=== PATIENT | male | born 1980 | race Caucasian/White ===

== ENCOUNTER 2020-01-04 08:42 | Emergency (ER) | payer MEDICAID, OTHER ==
[~2020-01-04] VITALS: Ht 172.7 cm; Wt 77.1 kg
[2020-01-04 10:01] VITALS: BP 157/100
[2020-01-04] MEDS ORDERED: ACETAMINOPHEN/CODEINE#3 (300/30mg) TAB PO ONE (10:15)
[2020-01-04] MEDS ORDERED: methylPREDNISolone SOD SUCC 125 MG/2 ML VL IV ONE (10:15)
[2020-01-04] MEDS ORDERED: CLINDAMYCIN 600MG IV 50 ML IV ONE (10:15)
[2020-01-04] MEDS ORDERED: KETOROLAC TROMETH 30 MG/ML 1ML VIAL IV ONE (10:15)
== END 2020-01-04 11:39 | disposition home or self-care (01) ==
LOC: ER 08:42
DX: K04.7 Periapical abscess without sinus (principal); F17.200 Nicotine dependence, unspecified, uncomplicated
CPT/HCPCS: 96365; 96375; 99284; J1885; J2930; J3490

== ENCOUNTER → 2021-06-15 | Emergency (ER) | payer MEDICAID ==
[~2021-06-15] VITALS: Ht 172.7 cm; Wt 86.2 kg
[~2021-06-15] MED LIST: cefTRIAXone SOD 1,000 MG VL IM ONE
[2021-06-15 19:50] VITALS: BP 163/111
== END | disposition home or self-care (01) ==
LOC: ER 18:07
DX: L02.213 Cutaneous abscess of chest wall (principal); Z87.891 Personal history of nicotine dependence
CPT/HCPCS: 96372; 99283; J0696

== ENCOUNTER 2024-03-16 16:54 | Emergency (ER) | payer MEDICAID ==
[~2024-03-16] VITALS: Ht 172.7 cm; Wt 77.8 kg
[2024-03-16 17:25] VITALS: BP 185/140; PULSE 122; RESP 17; O2SAT 97
[2024-03-16] MEDS ORDERED: HYDROcodone-ACET 5/325MG TAB PO ONE (17:30)
[2024-03-16] MEDS ORDERED: cefTRIAXone SOD 1,000 MG VL IM ONE (17:45)
[2024-03-16] MEDS ORDERED: cloNIDine HCL 0.1 MG TAB PO ONE (17:45)
[2024-03-16 18:59] LABS: Basophils # (auto) 0.1 10 ^3/uL (0-0.2); Basophils % (auto) 0.7 % (0.0-2.0); Eosinophils # (auto) 0.1 10 ^3/uL (0-0.8); Eosinophils % (auto) 0.8 % (0.0-7.0); Hematocrit 43.7 % (41.0-53.0); Hemoglobin 15.1 g/dL (13.5-17.5); Lymphocytes # (auto) 2.5 10 ^3/uL (0.4-5.4); Lymphocytes % (auto) 24.6 % (10.0-50.0); Mean Corpuscular Hemoglobin 32.5 pg (28.0-32.0); Mean Corpuscular Hgb Conc. 34.6 g/dL (32.0-36.0); Mean Corpuscular Volume 94.1 fL (80.0-100.0); Monocytes # (auto) 1.5 10 ^3/uL (0-1.3); Monocytes % (auto) 14.5 % (0.0-12.0); Neutrophils % (auto) 59.4 % (37.0-80.0); Nucleated Red Blood Cells % 0.1 %; Platelet Count (auto) 243 10^3/uL (140-450); Red Blood Cells 4.64 10^6/uL (4.5-5.90); White Blood Cell 10.2 10^3/uL (4.4-10.8)
[2024-03-16 19:04] LABS: Chloride 106 mmol/L (98-107); Potassium 3.7 mmol/L (3.5-5.1); Sodium 137 mmol/L (136-145)
[2024-03-16 19:05] LABS: Anion Gap 4 (5-15); Calcium 9.7 mg/dL (8.7-10.4); Carbon Dioxide 27 mmol/L (20-30)
[2024-03-16 19:10] LABS: BUN/Creatinine Ratio 8.2 (10.0-20.0); Blood Urea Nitrogen 8 mg/dL (9-23); Glucose 97 mg/dL (74-106)
[2024-03-16 19:20] LABS: CRP High Sensitivity 1.15 mg/dL (<1.0)
[2024-03-16 20:10] LABS: Erythrocyte Sedimentation Rate 8 mm/hr (0-20)
[2024-03-16] MEDS ORDERED: CEPH500C PO (20:32)
[2024-03-16] MEDS ORDERED: IBUP-1455 PO (20:32)
[2024-03-16] MEDS ORDERED: LISI-275 PO (20:32)
== END 2024-03-16 23:05 | disposition home or self-care (01) ==
LOC: ER 16:54
DX: S61.431A Puncture wound without foreign body of right hand, initial encounter (principal); L03.113 Cellulitis of right upper limb; I10 Essential (primary) hypertension; Z87.891 Personal history of nicotine dependence; X58.XXXA Exposure to other specified factors, initial encounter; Y93.89 Activity, other specified; Y92.89 Other specified places as the place of occurrence of the external cause; Y99.8 Other external cause status
CPT/HCPCS: 36415; 73200; 80048; 83605; 85025; 85652; 86141

== ENCOUNTER 2024-08-08 22:29 | Inpatient (IN) | payer SELFPAY ==
[~2024-08-08] VITALS: Ht 170.2 cm; Wt 77.2 kg
[~2024-08-08 22:29] MED LIST changes: +CEPH500C PO; +IBUP-1455 PO; +LISI-275 PO; -cefTRIAXone SOD 1,000 MG VL IM ONE
[2024-08-08 22:58] LABS: Chloride 107 mmol/L (98-107); Potassium 3.6 mmol/L (3.5-5.1); Sodium 140 mmol/L (136-145)
[2024-08-08 22:59] LABS: Anion Gap 6 (5-15); Carbon Dioxide 27 mmol/L (20-31)
[2024-08-08 23:00] LABS: Calcium 9.9 mg/dL (8.7-10.4)
[2024-08-08 23:04] LABS: BUN/Creatinine Ratio 11.2 (10.0-20.0); Blood Urea Nitrogen 15 mg/dL (9-23)
[2024-08-08 23:06] LABS: Basophils # (auto) 0.1 10 ^3/uL (0-0.2); Basophils % (auto) 0.9 % (0.0-2.0); Eosinophils # (auto) 0.1 10 ^3/uL (0-0.8); Eosinophils % (auto) 0.9 % (0.0-7.0); Hematocrit 45.5 % (41.0-53.0); Hemoglobin 15.4 g/dL (13.5-17.5); Mean Corpuscular Hemoglobin 31.8 pg (28.0-32.0); Mean Corpuscular Hgb Conc. 33.8 g/dL (32.0-36.0); Mean Corpuscular Volume 94.2 fL (80.0-100.0); Monocytes # (auto) 0.9 10 ^3/uL (0-1.3); Monocytes % (auto) 12.4 % (0.0-12.0); Neutrophils % (auto) 56.8 % (37.0-80.0); Nucleated Red Blood Cells % 0.2 %; Platelet Count (auto) 242 10^3/uL (140-450); Red Blood Cells 4.83 10^6/uL (4.5-5.90); Red Cell Distribution Width 12.8 % (11.8-14.3)
--- NOTE | 2024-08-08 23:06 | ED.PDOC ---
History of Present Illness HPI Roland 44 y/o M, with a Hx of HTN, presents with c/o non-radiating, left-sided chest pain for 1 day, today. Patient endorses on unprovoked onset of symptoms, last night, that has been persisting since. He comments on, today, feeling more "off" than ever in addition to being off his HTN medications since losing them, recently. He denies any shortness of breath, palpitations, nausea, vomiting, fever, chills, or other associated symptoms or modifiers at this time. Upon arrival to ED triage and time of assessment, patient had a blood pressure of 181/119. Chief Complaint: Chest Pain Time Seen by MD: 22:30 Primary Care Provider: NONE Reviewed Notes: Nurses Notes, Medications, Allergies Allergies: Coded Allergies: NO KNOWN ALLERGIES (Unverified , 06/29/12) Home Meds Active Scripts Lisinopril (Lisinopril) 5 Mg Tab, 5 MG PO DAILY for 30 Days, #30 TAB 3 Refills Prov:SUMAN ESPINOZA [facility] 03/16/24 Cephalexin Monohydrate (Cephalexin) 500 Mg Cap, 1 CAP PO QID for 5 Days, #20 CAP Prov:SUMAN ESPINOZA [facility] 03/16/24 Ibuprofen Micronized (Ibuprofen) 800 Mg Tab, 800 MG PO Q8HPRN PRN, #20 TAB Prov:SUMAN ESPINOZA [facility] 03/16/24 Information Source: Patient Mode of Arrival: Ambulatory Severity: Moderate Timing: Days Duration: Since onset Prehospital treatment: None Past Medical History PAST MEDICAL HISTORY: HTN Surgical History: Denies all surgeries Family History Family History: Unknown Social History Smoker: Non-Smoker Alcohol: Occasionally Drugs: Marijuana Lives In: Home Cardiovascular: reports: chest pain All Other Systems: Reviewed and Negative (negative ) Physical Exam General Appearance: No Apparent Distress, Normal HEENT: Normal ENT Inspection, Pharynx Normal, TMs Normal Neck: Full Range of Motion, Non-Tender, Normal, Normal Inspection Respiratory: Chest Non-Tender, Lungs Clear, No Accessory Muscle Use, No Respiratory Distress, Normal Breath Sounds Cardiovascular: No Edema, No JVD, No Murmur, No Gallop, Normal Peripheral Pulses, Regular Rate/Rhythm Breast Exam: Deferred Gastrointestinal: No Organomegaly, Non Tender, No Pulsatile Mass, Normal Bowel Sounds, Soft Genitalia: Deferred Pelvic: Deferred Rectal: Deferred Extremities: No calf tenderness, Normal capillary refill, Normal inspection, Normal range of motion, Non-tender, No pedal edema Musculoskeletal : Apperance: Normal Neurologic: Alert, 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 Was a procedure done?: No Differential Dx Considerations may include: PR, PE, ACS, costochondritis, pericarditis, gastritis, gastroenteritis, viral syndrome, musculoskeletal pain, angina, anxiety X-Ray, Labs, Meds, VS Vital Signs Date Time Temp Pulse Resp B/P (MAP) Pulse Ox O2 Delivery O2 Flow Rate FiO2 08/08/24 23:50 89 08/08/24 22:37 98.8 103 16 181/119 (139) 97 08/08/24 22:34 104 Lab Test 08/08/24 23:27 08/08/24 21:38 Range/Units Troponin I High Sensitivity 55 *H 54 </=54 ng/L White Blood Count 7.0 4.4-10.8 10^3/uL Red Blood Count 4.83 4.5-5.90 10^6/uL Hemoglobin 15.4 13.5-17.5 g/dL Hematocrit 45.5 41.0-53.0 % Mean Corpuscular Volume 94.2 80.0-100.0 fL Mean Corpuscular Hemoglobin 31.8 28.0-32.0 pg Mean Corpuscular Hemoglobin Concent 33.8 32.0-36.0 g/dL Red Cell Distribution Width 12.8 11.8-14.3 % Platelet Count 242 140-450 10^3/uL Mean Platelet Volume 8.1 6.9-10.8 fL Neutrophils (%) (Auto) 56.8 37.0-80.0 % Lymphocytes (%) (Auto) 29.0 10.0-50.0 % Monocytes (%) (Auto) 12.4 H 0.0-12.0 % Eosinophils (%) (Auto) 0.9 0.0-7.0 % Basophils (%) (Auto) 0.9 0.0-2.0 % Neutrophils # (Auto) 4.0 1.6-8.6 10 ^3/uL Lymphocytes # (Auto) 2.0 0.4-5.4 10 ^3/uL Monocytes # (Auto) 0.9 0-1.3 10 ^3/uL Eosinophils # (Auto) 0.1 0-0.8 10 ^3/uL Basophils # (Auto) 0.1 0-0.2 10 ^3/uL Nucleated Red Blood Cells 0.2 % Sodium Level 140 136-145 mmol/L Potassium Level 3.6 3.5-5.1 mmol/L Chloride Level 107 98-107 mmol/L Carbon Dioxide Level 27 20-31 mmol/L Anion Gap 6 5-15 Blood Urea Nitrogen 15 9-23 mg/dL Creatinine 1.34 H 0.700-1.30 mg/dL Glomerular Filtration Rate Calc 67 >90 mL/min BUN/Creatinine Ratio 11.2 10.0-20.0 Serum Glucose 110 H 74-106 mg/dL Calcium Level 9.9 8.7-10.4 mg/dL B-Type Natriuretic Peptide 37.78 0-100 pg/mL [place] [address] Ph: [phone] DIAGNOSTIC IMAGING Diagnostic Imaging Report : [id number] Signed PATIENT: MASSIEL ESTRADA ACCT: [id number] UNIT: [id number] : 1980 LOC: ER ROOM / BED: / AGE / SEX: 44 / M ADM STATUS: REG ER SERVICE 2245 ORDERING PHYSICIAN: NILSA OQUENDO MD PROCEDURE(s): CXR2 - CHEST TWO VIEWS ROUTINE REASON: chest pain ORDER NUMBER(s): [id number], ACCESSION NUMBER(s): [id number] EXAM: XY CHEST TWO VIEWS ROUTINE CLINICAL HISTORY: chest pain TECHNIQUE: Frontal and lateral views of the chest WID: COMPARISON: None FINDINGS: Lines and tubes: None Chest: The heart size and pulmonary vasculature is within normal limits. Small subtle mixed opacity in the lateral right lung base. No pleural effusion or pneumothorax. The osseous structures are grossly intact. Multilevel thoracic spondylosis. IMPRESSION: Small subtle opacity in the lateral right lung base which could reflect developing pneumonia. ATED BY: FRANCK FOSS MD DICTATED DATE/TIME: 08/08/242351 SIGNED BY: FRANCK FOSS MD SIGNED DATE/TIME: 08/08/242351 CC: Time of 1ST Reevaluation: 23:00 Reevaluation 1ST: Unchanged Patient Education/Counseling: Diagnosis, Treatment Family Education/Counseling: No Family Present Additional Information I reviewed the following notes from patient's past medical encounters: ED visit physician note on 03/16/24 The following tests were ordered, and results were reviewed by me: CBC, BNP, BMP, TROPONIN, EKG, CXR I reviewed and agreed with the following test results read by other providers: CXR I discussed treatment and results with medical personnel Departure 1 Departure Time of Disposition: 00:59 (Patient presented with hypertension and symptoms concerning for hypertensive emergency. Patient is receiving iv blood pressure medications requiring intensive monitoring. Data: 1. I ordered and reviewed the result of at least 3 labs including a CBC, BMP, and Urinalysis. 2. I independently interpreted the following tests: CT Brain: Which appears benign. EKG which is Normal Sinus RhythmRisk:This patient has a high risk of morbidity due to further diagnostic testing or treatment and may suffer from an acute cardiac disorder. Workup reveals hypertensive emergency and patient should be admitted for further workup. and possible expert consultation. ) Impression: Primary Impression: Hypertensive emergency, no CHF Disposition: 09 ADMITTED INPATIENT Admit to: Med Surg Condition: Serious Critical Care Note Critical Care Time?: Yes Critical care comment: Hypertensive emergency Authorized and Performed by: Nilsa Oquendo MD Total critical care time: Approximately 32 minutes Due to a high probability of clinically significant, life threatening deterioration, the patient required my highest level of preparedness to intervene emergently and I personally spent this critical care time directly and personally managing the patient. This critical care time included obtaining a history; examining the patient; pulse oximetry; ordering and review of studies; arranging urgent treatment with development of a management plan; evaluation of patient's response to treatment; frequent reassessment; and, discussions with other providers. This critical care time was performed to assess and manage the high probability of imminent, life-threatening deterioration that could result in multi-organ failure. It was exclusive of separately billable procedures and treating other patients and teaching time. Please see my other sections and the rest of the note for further information on patient assessment and treatment. Stability Stability form required: No Heart Score Heart Score: Heart Score Response (Comments) Value History Slightly Suspicious 0 EKG Normal 0 Age <45 0 Risk Factors 1 or 2 risk factors 1 Troponin 1-2 x's Normal limit 1 Total 2 I personally scribed for NILSA OQUENDO MD ([email or web address]) on 08/08/24 at 23:06. Electronically submitted by Maximiliano Lawrence ([email or web address]). I personally scribed for NILSA OQUENDO MD ([email or web address]) on 08/09/24 at 00:30. Electronically submitted by Maximiliano Lawrence ([email or web address]). I personally scribed for NILSA OQUENDO MD ([email or web address]) on 08/09/24 at 00:30. Merle ctronically submitted by Maximiliano Lawrence ([email or web address]). NILSA OQUENDO MD Aug 08, 2024 23:06
[2024-08-08 23:17] LABS: Glucose 110 mg/dL (74-106)
--- NOTE | 2024-08-08 23:55 | DVH ---
EXAM: XY CHEST TWO VIEWS ROUTINE CLINICAL HISTORY: chest pain TECHNIQUE: Frontal and lateral views of the chest WID: COMPARISON: None FINDINGS: Lines and tubes: None Chest: The heart size and pulmonary vasculature is within normal limits. Small subtle mixed opacity in the lateral right lung base. No pleural effusion or pneumothorax. The osseous structures are grossly intact. Multilevel thoracic spondylosis. IMPRESSION: Small subtle opacity in the lateral right lung base which could reflect developing pneumonia.
[2024-08-09 01:20] VITALS: PULSE 95; RESP 16; O2SAT 97
[2024-08-09] MEDS: hydrALAZINE HCL 20 MG/ML VL IV ONE (01:20)
[2024-08-09 02:34] VITALS: BP 178/109; PULSE 95; RESP 16; O2SAT 98
[2024-08-09] MEDS: cloNIDine HCL 0.1 MG TAB ONE (02:48)
[2024-08-09] MEDS: cloNIDine HCL 0.1 MG TAB PO ONE (02:48)
[2024-08-09] MEDS ORDERED: NITROGLYCERIN 0.4 MG SL TAB SL PRN (03:45)
[2024-08-09] MEDS ORDERED: MORPHINE SULFATE INJ 2 MG/ml SYRG IV PRN (03:45)
--- NOTE | 2024-08-09 04:35 | DVHDSRES ---
Discharge Summary Date of Admission Resident Creating Document: LIZ CHUNG RESDIENT Aug 09, 2024 at 03:31 Date of Discharge: Aug 09, 2024 Admitting Diagnosis Hypertensive Emergency Labs/Diagnostic Data: Laboratory Results Test 08/09/24 01:33 08/08/24 21:38 Troponin I High Sensitivity 55 ng/L (</=54) White Blood Count 7.0 10^3/uL (4.4-10.8) Red Blood Count 4.83 10^6/uL (4.5-5.90) Hemoglobin 15.4 g/dL (13.5-17.5) Hematocrit 45.5 % (41.0-53.0) Mean Corpuscular Volume 94.2 fL (80.0-100.0) Mean Corpuscular Hemoglobin 31.8 pg (28.0-32.0) Mean Corpuscular Hemoglobin Concent 33.8 g/dL (32.0-36.0) Red Cell Distribution Width 12.8 % (11.8-14.3) Platelet Count 242 10^3/uL (140-450) Mean Platelet Volume 8.1 fL (6.9-10.8) Neutrophils (%) (Auto) 56.8 % (37.0-80.0) Lymphocytes (%) (Auto) 29.0 % (10.0-50.0) Monocytes (%) (Auto) 12.4 % (0.0-12.0) Eosinophils (%) (Auto) 0.9 % (0.0-7.0) Basophils (%) (Auto) 0.9 % (0.0-2.0) Neutrophils # (Auto) 4.0 10 ^3/uL (1.6-8.6) Lymphocytes # (Auto) 2.0 10 ^3/uL (0.4-5.4) Monocytes # (Auto) 0.9 10 ^3/uL (0-1.3) Eosinophils # (Auto) 0.1 10 ^3/uL (0-0.8) Basophils # (Auto) 0.1 10 ^3/uL (0-0.2) Nucleated Red Blood Cells 0.2 % Sodium Level 140 mmol/L (136-145) Potassium Level 3.6 mmol/L (3.5-5.1) Chloride Level 107 mmol/L (98-107) Carbon Dioxide Level 27 mmol/L (20-31) Anion Gap 6 (5-15) Blood Urea Nitrogen 15 mg/dL (9-23) Creatinine 1.34 mg/dL (0.700-1.30) Glomerular Filtration Rate Calc 67 mL/min (>90) BUN/Creatinine Ratio 11.2 (10.0-20.0) Serum Glucose 110 mg/dL (74-106) Calcium Level 9.9 mg/dL (8.7-10.4) B-Type Natriuretic Peptide 37.78 pg/mL (0-100) Other Laboratory Tests 08/08/24 21:38 Brief Hx & Hospital Course: This is a 44-year-old male with past medical history of hypertension, came to the hospital due to left-sided chest pain. Per patient, he has developed left- sided chest pain since 1 days, localized to the left lower chest, no radiation, 4/10 in intensity, dull in nature with no specific exacerbating or relieving factor. The patient also reports mild shortness of breaths, and body shaking. The patient denies fever, cough, headache, visual changes, nausea, vomiting, or any sensory or motor deficits. the patient has been run out of the antihypertensive medicine since 1 mouth. PMHx: Hypertension PSHx: Not significant Social history: Patient lives with the family at home, ex-smoker, denies alcohol or any other drug use Home medication: Patient was using antihypertensive, did not remember the name, ran out of medicine 1 month back Allergic history: Unknown allergy On admission, blood pressure was raised at 181/119, otherwise physical examination was unremarkable. Lab studies showed raised creatinine at 1.31, raised trop I at 55, chest x-ray showed hyperinflation and EKG showed nonspecific changes on anterolateral leads. The patient was admitted at the line of hypertensive emergency. In ED the patient was given injection hydralazine and tablet clonidine, blood pressure mild improved. On 08/09/2024, the patient seen and examined at the bedside. Patients status and the plan was discussed with the patient. But later on the patient left AMA. Operations or Procedures [address] [address] Ph: [phone] DIAGNOSTIC IMAGING Diagnostic Imaging Report : [id number] Signed PATIENT: MASSIEL ESTRADA ACCT: [id number] UNIT: [id number] : 1980 LOC: ER ROOM / BED: / AGE / SEX: 44 / M ADM STATUS: REG ER SERVICE 2245 ORDERING PHYSICIAN: NILSA OQUENDO MD PROCEDURE(s): CXR2 - CHEST TWO VIEWS ROUTINE REASON: chest pain ORDER NUMBER(s): [id number], ACCESSION NUMBER(s): [id number] EXAM: XY CHEST TWO VIEWS ROUTINE CLINICAL HISTORY: chest pain TECHNIQUE: Frontal and lateral views of the chest WID: COMPARISON: None FINDINGS: Lines and tubes: None Chest: The heart size and pulmonary vasculature is within normal limits. Small subtle mixed opacity in the lateral right lung base. No pleural effusion or pneumothorax. The osseous structures are grossly intact. Multilevel thoracic spondylosis. IMPRESSION: Small subtle opacity in the lateral right lung base which could reflect developing pneumonia. ATED BY: FRANCK FOSS MD DICTATED DATE/TIME: 08/08/242351 SIGNED BY: FRANCK FOSS MD SIGNED DATE/TIME: 08/08/242351 CC: Condition at Discharge: Undetermined Final Diagnosis/Problems List Hypertensive emergency NSTEMI, likely type 2, due to above ELVIRA, likely VMN Hyperglycemia Discharge Disposition: AMA Discharge Statement: "Patient was advised to return to the ER or call 911 if any headaches, dizziness, shortness of breath, chest pain, abdominal pain, bleeding, fevers, or worsening of medical condition. Patient was counseled about treatment plan, medications, possible side effects, patientverbalized understanding. All questions were answered to the best of my ability. This discharge took greater then 30 minutes in planning, reviewing documentation, counseling the patient, and discussing with other team members." ASSESSMENT ASSESSMENT Assessment LIZ CHUNG Aug 09, 2024 04:35
--- NOTE | 2024-08-09 07:08 | ECG ---
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
--- NOTE | 2024-08-09 07:13 | ECG ---
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
--- NOTE | 2024-08-09 07:14 | ECG ---
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
== END 2024-08-09 15:53 | disposition left against medical advice (07) | DRG 280 ==
LOC: ER 22:29 → TELE 08-09 03:31
PROVIDERS: ADMIT Internal Medicine; ATTEND Internal Medicine
DX: I16.1 Hypertensive emergency (principal); N17.0 Acute kidney failure with tubular necrosis; I21.A1 Myocardial infarction type 2; R73.9 Hyperglycemia, unspecified; Z53.29 Procedure and treatment not carried out because of patient's decision for other reasons
CPT/HCPCS: 36415; 71046; 80048; 83880; 84484; 85025; 93005; 99291; G0378